=== PATIENT | male | born 1970 | race Asian ===

== ENCOUNTER 2017-12-05 16:36 | Inpatient (IN) | payer OTHER ==
[~2017-12-05] VITALS: Ht 157.5 cm; Wt 74.1 kg
[~2017-12-05 16:36] MED LIST: APAP650 PO; ASPIR 8181 MG PO; ASPIRIN325 PO; ATORVASTATIN CA40 MG PO; BRILINTA90 MG PO; CARVEDILOL3.125 MG PO; EFFIENT10 MG PO; MEDROL DOSPAK21 TA1 PO; METFORMIN HCL500 MG PO; NITROGLYCERIN0.4 MG SUBLING
[2017-12-05 16:41] VITALS: BP 185/137
[2017-12-05] MEDS ORDERED: COZAAR 50 MG TA50 M2 PO (16:46)
[2017-12-05 17:06] LABS: ABSOLUTE BASOPHILS 0.1 thou/uL (0.0-0.2); ABSOLUTE LYMPHOCYTES 2.8 thou/uL (0.8-5.3); ABSOLUTE MONOCYTES 0.6 thou/uL (0.0-1.2); ABSOLUTE NEUTROPHILS 10.4 thou/uL (1.6-8.1); BASOPHILS 0.7 %; EOSINOPHILS 0.2 %; HEMATOCRIT 43.7 % (42.0-52.0); MCH 29.4 pg (26.0-34.0); MCHC 34.4 g/dL (28.0-37.0); MCV 85.5 fL (80.0-100.0); MONOCYTES 4.4 %; MPV 7.6 fl. (7.2-11.1); NUCLEATED RBCS 0 /100WBC; PLATELET COUNT* 274 thou/uL (150-400); POLYS 74.7 %; RBC 5.11 mil/uL (4.50-6.00); RDW-CV 12.8 % (10.5-14.5); WBC 13.9 thou/uL (4.0-11.0)
[2017-12-05 17:14] LABS: APTT 24.3 Seconds (25.0-31.3); PROTIME 9.6 Seconds (9.20-11.50)
[2017-12-05 17:16] LABS: ANION GAP 11 mmol/L (7-16); BUN 18 mg/dL (7-18); CALCIUM 9.3 mg/dL (8.5-10.1); CHLORIDE 97 mmol/L (98-107); CO2 28 mmol/L (21-32); CREATININE 1.2 mg/dL (0.6-1.3); GLUCOSE 265 mg/dL (70-99); POTASSIUM 4.1 mmol/L (3.5-5.1); SODIUM 136 mmol/L (136-145)
[2017-12-05 17:23] LABS: ALBUMIN 4.5 g/dL (3.4-5.0); ALKALINE PHOSPHATASE 105 U/L (46-116); LIPASE 183 U/L (73-393); SGOT 26 U/L (15-37); SGPT 62 U/L (30-65); TOTAL BILIRUBIN 0.7 mg/dL (<0.1-1.0); TOTAL PROTEIN 8.9 g/dL (6.4-8.2); TROPONIN-I LEVEL <0.06 ng/mL (<0.06)
--- NOTE | 2017-12-05 18:10 | NUR ---
PT AMBULATED TO BATHROOM
[2017-12-05 18:25] LABS: URINE BILIRUBIN NEGATIVE (Negative); URINE BLOOD NEGATIVE (Negative); URINE CLARITY CLEAR; URINE COLOR YELLOW; URINE GLUCOSE-RANDOM 1+ (Negative); URINE KETONES TRACE (Negative); URINE LEUKOCYTES-REFLEX NEGATIVE (Negative); URINE NITRITE-REFLEX NEGATIVE (Negative); URINE PROTEIN 2+ (Negative); URINE SPECIFIC GRAVITY >= 1.030 (1.005-1.030); URINE UROBILINOGEN 0.2 E.U./dl (0.2-1.0)
[2017-12-05 18:35] LABS: BACTERIA-REFLEX None Seen /HPF (None Seen); HYALINE CASTS 4-10 Moderate /LPF (None Seen); MUCUS 0-3 Light strn/LPF (None Seen); SQUAMOUS 4-10 Moderate /LPF (0-3); URINE RBC 0-2 Rare /HPF (0-2)
[2017-12-05 18:36] LABS: CRYSTALS None Seen /LPF (None Seen); URINE WBC-REFLEX None Seen /HPF (0-5)
--- NOTE | 2017-12-05 19:10 | NUR ---
CALLED PHARMACY AT THIS TIME REGARDING PHENEGRAN IV. THEY WILL MIX IT AND BRING IT DOWN WHEN THEY ARE ABLE.
[2017-12-05 19:50] VITALS: BP 130/79; BP 143/89
[2017-12-06 00:20] VITALS: BP 138/46
[2017-12-06 04:37] VITALS: BP 138/89
--- NOTE | 2017-12-06 05:59 | NUR ---
PT ADMITTED TO UNIT. PT ORIENTED TO ROOM, FALL AGREEMENT WENT OVER, PT STATED UNDERSTANDING. ASSESSMENT DOCUMENTED. MEDS GIVEN PER E-MAR. IV PATENT, FLUIDS INFUSING. PT REPORTED THAT HE GOT ABDOMINAL PAIN FROM VOMITING. PT STATED NAUSEA WAS BETTER FROM LAST NIGHT. WILL CONTINUE WITH PLAN OF CARE.
[2017-12-06 06:57] LABS: HEMOGLOBIN 13.1 gm/dL (14.0-18.0); MCH 29.4 pg (26.0-34.0); MCHC 34.5 g/dL (28.0-37.0); MCV 85.2 fL (80.0-100.0); MPV 7.4 fl. (7.2-11.1); RBC 4.46 mil/uL (4.50-6.00); WBC 8.7 thou/uL (4.0-11.0)
[2017-12-06 07:10] LABS: ALBUMIN 3.5 g/dL (3.4-5.0); ALKALINE PHOSPHATASE 75 U/L (46-116); BUN 12 mg/dL (7-18); CALCIUM 8.5 mg/dL (8.5-10.1); CHLORIDE 103 mmol/L (98-107); CREATININE 0.9 mg/dL (0.6-1.3); GLUCOSE 156 mg/dL (70-99); MAGNESIUM 1.6 mg/dL (1.8-2.4); POTASSIUM 3.4 mmol/L (3.5-5.1); SGOT 22 U/L (15-37); SGPT 52 U/L (30-65); SODIUM 139 mmol/L (136-145); TOTAL BILIRUBIN 0.6 mg/dL (<0.1-1.0)
[2017-12-06 07:31] LABS: ANION GAP 9 mmol/L (7-16); CO2 27 mmol/L (21-32); TROPONIN-I LEVEL <0.06 ng/mL (<0.06)
[2017-12-06 08:00] VITALS: BP 142/92
[2017-12-06] MEDS ORDERED: SCOPOLAMINE1 EACH TOP (08:03)
[2017-12-06] MEDS ORDERED: ZOFRAN ODT4 MG DISSOLVE (08:03)
[2017-12-06 11:23] VITALS: BP 142/92
--- NOTE | 2017-12-06 11:36 | EKG ---
[place] [address] ELECTROCARDIOGRAM REPORT Name: ANNEL RAMIREZ Room: [address] R.#: [id number] Admission: 12/05/17 Attend Phys: Farhana Manzo MD Discharge: Date of : 68 Report #: [id number] THIS REPORT FOR: //name// [facility] ED Test Date: 2017-12-05 Test Time: 16:49:20 Pat Name: ANNEL RAMIREZ Department: Room: Gender: Campus Director: Stefanie WARE : 1970 Requested By: Moe Maldonado Order Number: [id number] MD: Kel Salcedo Measurements Intervals [place] Rate: 77 P: 44 [place]: 148 QRS: 79 QRSD: 98 T: 36 QT: 394 QTc: 446 Interpretive Statements Sinus rhythm Compared to ECG 05/01/2016 08:33:51 no change Electronically Signed On 12-06-2017 11:36:39 CDT by Kel Salcedo [email or web address] <ELECTRONICALLY SIGNED> By: Kel Salcedo MD, [facility] 12/06/17 1136 D: 06/1648 48 Kel Salcedo MD, FACC /EPI
[2017-12-06 11:49] VITALS: BP 138/94
--- NOTE | 2017-12-06 14:31 | NUR ---
PATIENT A&OX4, ROOM AIR, IV LEFT AC. IV DISCONTINUED, CATHETER FULLY INTACT. UP AD NELSON, STEADY GAIT. NO C/O PAIN/N/V. ADVANCED TO SOFT VIBER DIET, TOLLERATING BREAKFAST AND LUNCH. PATIENT DISCHARGED. REVIEWED PAPERWORK WITH PATIENT, WHILE FAMILY AT BEDSIDE. NO FURTHER QUESTIONS AT THIS TIME. PATIENT LEFT UNIT AT 1425 AMBULATORY WITH FAMILY WITH ALL BELONGINGS. APPROPRIATE AND COOPORATIVE WITH CARE.
== END 2017-12-06 14:25 | disposition home or self-care (01) | DRG 866 ==
LOC: M.ERS 16:36 → M.3W 18:07 → M.TBA-ER 18:07 → M.3W 19:56
PROVIDERS: Family Medicine; ADMIT Internal Medicine
DX: B34.9 Viral infection, unspecified (principal); E11.65 Type 2 diabetes mellitus with hyperglycemia; E78.5 Hyperlipidemia, unspecified; I25.10 Atherosclerotic heart disease of native coronary artery without angina pectoris; K82.9 Disease of gallbladder, unspecified; Z95.818 Presence of other cardiac implants and grafts; Z79.899 Other long term (current) drug therapy; Z79.82 Long term (current) use of aspirin; Z88.8 Allergy status to other drugs, medicaments and biological substances; Z91.041 Radiographic dye allergy status; I25.2 Old myocardial infarction

== ENCOUNTER → 2018-12-20 | Outpatient (CLI) | payer OTHER ==
[~2018-12-20] MED LIST changes: +COZAAR 50 MG TA50 M2 PO; +SCOPOLAMINE1 EACH TOP; +ZOFRAN ODT4 MG DISSOLVE
--- NOTE | 2018-12-20 16:43 | CARDNUC ---
[place] [address] CARDIAC NUCLEAR IMAGING REPORT Name: ANNEL RAMIREZ [facility] [id number] Admission: 12/20/18 Attend Phys: Shaun Chahal Discharge: Date of : 68 Date of Service: 12/20/18 1643 Report #: [id number] THIS REPORT FOR: //name// APPROVED REPORT Study performed: 12/20/2018 08:00:00 Indication: CAD s/p PCI, CAD s/p NE Patient Location: Out-Patient Stress Tech: Carmel Wright Stress Nurse: Denia Ruvalcaba RN BMI: 0 Medical History Medical History: CAD s/p NE, CAD s/p stent, Diabetic Insulin, Fatigue, HTN, Hyperlipidemia. Medications: NTG, CARVEDILOL, ASA 81 MG, LOSARTAN, ATORVASTATIN, JANUMET. Allergies: EFFIENT Cardiac Risk Factors: Age, Diabetes (insulin), FHX of CAD, HTN, Hyperlipidemia. Previous Cardiac Procedures: Myocardial infarction, PCI. Pretest Chest Pain Characteristics: No chest pain Exercise History: Physically active Physical Disabilities: NONE Meds Held (24 hrs): CARVEDILOL, NTG. Resting Data Rest SPECT myocardial perfusion imaging was performed in supine position 30 minutes following the intravenous injection of 11.4 mCi of Tc-99m Sestamibi. Time of rest injection: 08:05 The images were gated to evaluate regional wall motion and calculate left ventricular ejection fraction. Administration Route: IV Administration Site: Right AC Exercise Stress At peak stress, the patient was injected intravenously with 33.3mCi of Tc-99m Sestamibi. Time of stress injection: 09:35 Administration Route: IV Administration Site: Right AC Heart Rate at time of stress injection: [address] [place] [address] CARDIAC NUCLEAR IMAGING REPORT Name: ANNEL RAMIREZ [id number] Admission: 12/20/18 Attend Phys: Shaun Chahal Discharge: Date of : 68 Date of Service: 12/20/18 1643 Report #: [id number] Gated Stress SPECT was performed 30 minutes after stress injection. The images were gated to evaluate regional wall motion and calculate left ventricular ejection fraction. Prone imaging was performed. Stress Test Details Stress Test: Exercise stress testing was performed using a Jason protocol. HR Max Heart Rate (APMHR): 171 bpm Resting HR: 74 bpm Target HR (85% APMHR): 145 bpm Max HR Achieved: 171 bpm % of APMHR: 100 Recovery HR: 105 bpm BP Resting BP: 155/102 mmHg Max BP: 192/83 mmHg Recovery BP: 151/78 mmHg ECG Resting ECG: Sinus Rhythm Stress ECG: Sinus Tachycardia ST Change: None Arrhythmia: None Recovery ECG: Sinus Rhythm Recovery ST Change: None Recovery Arrhythmia: None Clinical Reason for Termination: Patient Request, TARGET HR ACHIEVED. Stress Symptoms: Dyspnea, Leg Fatigue Exercise duration: 9 min 36 sec Exercise capacity: 11.13 METs Overall Exercise Capacity for Age: Normal The patient tolerated standard Jason protocol exercise without significant cardiac symptoms. Nurse Comments 48 YEAR OLD MALE PRESENTED WITH HX OF NE AND PCI. PATIENT TOLERATED JASON PROTOCOL NUCLEAR STRESS TEST WELL. EXERCISE CAPACITY NORMAL. RECOVERY UNREMARKABLE. PATIENT ESCORTED BY STAFF TO NUCLEAR MEDICINE FOR IMAGES. PATIENT WAS STABLE WITH NO COMPLAINTS AT THAT TIME. INSTRUCTED PATIENT TO TAKE B/P MEDS PROMPTLY UPON [place] [address] CARDIAC NUCLEAR IMAGING REPORT Name: ANNEL RAMIREZ [facility] [id number] Admission: 12/20/18 Attend Phys: Shaun Chahal Discharge: Date of : 68 Date of Service: 12/20/18 1643 Report #: [id number] Stress ECG Conclusion The baseline EKG shows sinus rhythm without significant ST or T wave. EKGs obtained during and post exercise stress show sinus rhythm and sinus tachycardia with no significant ST or T wave changes when compared to baseline. There were no stress-induced arrhythmias. Study Quality Study: Good Artifact: No artifact Study Data At rest, the left ventricular ejection fraction was 67%.. Post stress, the left ventricular ejection was 69%.. TID = 0.76. Perfusion Normal left ventricular perfusion. Wall Motion Normal left ventricular wall motion. Nuclear Conclusion ECG Findings: negative for ischemia Clinical Findings: negative for ischemia Nuclear Findings: negative for ischemia Exercise Capacity: normal Left Ventricular Function: normal Risk Study: low Myocardial perfusion images show no defect to suggest infarct or ischemia. Left ventricular systolic function appears normal on gated studies. This is a low risk study. <Conclusion> The baseline EKG shows sinus rhythm without significant ST or T wave. EKGs obtained during and post exercise stress show sinus rhythm and sinus tachycardia with no significant ST or T wave changes when compared to baseline. There were no stress-induced arrhythmias. <ELECTRONICALLY SIGNED> By: Hung Dobson MD, FACC 12/20/18 1643 164 164 Hung Dobson MD, FACC /INF
== END ==
LOC: M.NUC 11-30 10:23
DX: I25.10 Atherosclerotic heart disease of native coronary artery without angina pectoris (principal); E78.00 Pure hypercholesterolemia, unspecified; E11.9 Type 2 diabetes mellitus without complications; I25.2 Old myocardial infarction; I10 Essential (primary) hypertension; Z98.61 Coronary angioplasty status